=== PATIENT | female | born 1990 | race African-American/Black ===

== ENCOUNTER 2019-11-27 17:29 | Emergency (ER) | payer SELFPAY ==
[2019-11-27 17:49] VITALS: BP 110/67
--- NOTE | 2019-11-27 18:21 | UC ---
Lower Extremity/Ankle HPI - HPI Summary HPI Summary: 29-year-old male presenting with left dorsal foot pain 6 days. Patient states that she injured herself while working in [place] 60s ago and was treated for an ankle sprain. Patient states that she was told she would begin to feel better within 2 days but states her pain has not improved. She states she has been using a stirrup splint without relief either. He notes taking ibuprofen with minimal relief. Denies any bruising or swelling that she can notice. Notes very painful to touch. Denies decreased range of motion. Denies numbness or tingling. Is able to ambulate but with some pain. Patient is here from [place]. - History of Current Complaint Chief Complaint: UCLowerExtremity Stated Complaint: LEFT ANKLE PAIN Hx Obtained From: Patient Hx Last Menstrual Period: 10/08/19 Pain Intensity: 8 Pain Scale Used: 0-10 Numeric - Allergies/Home Medications Allergies/Adverse Reactions: Allergies Allergy/AdvReac Type Severity Reaction Status Date / Time lorazepam [From Ativan] Allergy made her Verified 11/27/19 17:49 suicidal Home Medications: Home Medications NK [No Home Medications Reported] 11/27/19 [History Confirmed 11/27/19] PMH/Surg Hx/FS Hx/Imm Hx Previously Healthy: Yes - Surgical History Surgical History: Yes Surgery Procedure, Year, and Place: IVR for DVT - Family History Known Family History: Positive: Non-Contributory - Social History Alcohol Use: None Substance Use Type: None Smoking Status (MU): Former Smoker Review of Systems All Other Systems Reviewed And Are Negative: No Constitutional: Positive: Negative Skin: Negative: Bruising Respiratory: Positive: Negative Cardiovascular: Positive: Negative Musculoskeletal: Positive: Arthralgia - L foot. Negative: Decreased ROM, Edema Neurological: Negative: Paresthesia, Numbness Physical Exam - Summary Physical Exam Summary: Vital Signs Reviewed: Yes A+Ox3, no distress Eyes: Conjunctiva Clear ENT: Hearing grossly normal neck: supple Respiratory: Positive: No respiratory distress, No accessory muscle use Cardiovascular: skin color reflect adequate perfusion Musculoskeletal Exam: +TTP of left medial midfoot, no edema, no ecchymosis, sensation grossly intact, strong pedal pulse Neurological: Positive: Alert Psychological: Positive: Age-appropriate behavior Skin: Positive: no rash, no ecchymosis Vital Signs: Initial Vital Signs Temp 98 F 11/27/19 17:44 Pulse 92 11/27/19 17:44 Resp 16 11/27/19 17:44 BP 110/67 11/27/19 17:44 Pulse Ox 100 11/27/19 17:44 Diagnostics - Radiology L foot Radiology Interpretation Completed By: ED Physician Summary of Radiographic Findings: neg fx Lower Extremity Course/Dx - Course Course Of Treatment: Discussed initial negative radiograph reviewed with patient and informed her that final report be obtained in the morning and should be notified with any abnormalities. Instructed to continue with rest, ice, elevation and use a cam boot and set of gel splint. Patient to follow up with primary care provider or orthopedics in [place] where she lives if pain persists. Patient voiced understanding and agreed with treatment plan. - Differential Dx/Diagnosis Differential Diagnosis/HQI/PQRI: Contusion, Fracture (Closed), Sprain, Strain Provider Diagnosis: Sprain of foot, left Discharge ED - Sign-Out/Discharge Documenting (check all that apply): Patient Departure All imaging exams completed and their final reports reviewed: No - Discharge Plan Condition: Stable Disposition: HOME Patient Education Materials: Foot Sprain (ED) Forms: *Work Release Additional Instructions: As discussed, your radiograph was reviewed by the provider that treated you tonight. It will be read by a radiologist tomorrow morning. If there is a finding other than that discussed with you today, you will receive a call from a care provider. Rest, ice, elevate, and use the CAM boot to help alleviate pain and swelling. Use over the counter pain medications as directed for pain relief. Refrain from strenuous or prolonged physical activity until pain has fully resolved. Follow up with your primary care provider or your orthopedic physician if your pain does not improve within the next 5-7 days. - Billing Disposition and Condition Condition: STABLE Disposition: Home
--- NOTE | 2019-11-28 11:55 | UC ---
- Progress Note Progress Note: X ray, final reading: No fracture. Newton Saunders MD Course/Dx - Diagnoses Provider Diagnoses: Sprain of foot, left Discharge ED - Sign-Out/Discharge Documenting (check all that apply): Post-Discharge Follow Up All imaging exams completed and their final reports reviewed: Yes - Discharge Plan Condition: Stable Disposition: HOME Patient Education Materials: Foot Sprain (ED) Forms: *Work Release Referrals: No Primary Care Phys,NOPCP [Primary Care Provider] - Additional Instructions: As discussed, your radiograph was reviewed by the provider that treated you tonight. It will be read by a radiologist tomorrow morning. If there is a finding other than that discussed with you today, you will receive a call from a care provider. Rest, ice, elevate, and use the CAM boot to help alleviate pain and swelling. Use over the counter pain medications as directed for pain relief. Refrain from strenuous or prolonged physical activity until pain has fully resolved. Follow up with your primary care provider or your orthopedic physician if your pain does not improve within the next 5-7 days. - Billing Disposition and Condition Condition: STABLE Disposition: Home
== END 2019-11-27 19:03 | disposition home or self-care (01) ==
LOC: UCEAST 17:29
DX: S93.602A Unspecified sprain of left foot, initial encounter (principal); Z88.0 Allergy status to penicillin; Z87.891 Personal history of nicotine dependence; X58.XXXA Exposure to other specified factors, initial encounter; Y92.9 Unspecified place or not applicable
CPT/HCPCS: 99202; G0463